=== PATIENT | female | born 1970 | race Caucasian/White ===

== ENCOUNTER 2017-01-11 02:51 | Emergency (ER) ==
[2017-01-11 03:00] VITALS: BP 104/73; TEMP 97.4; BMI 37.5
[2017-01-11] MEDS ORDERED: SODIUM CHLORIDE 1,000 ML IV STA (03:36)
[2017-01-11] MEDS ORDERED: ZOFRAN 4 MG/2 ML IVP STA (03:36)
[2017-01-11] MEDS ORDERED: DILAUDID 1 MG/ML SYRINGE IVP STA (03:36)
[2017-01-11] MEDS ORDERED: PROTONIX IV IVP STA (03:36)
[2017-01-11 03:50] LABS: BASOPHILS # (AUTO) 0.1 K/uL (0-0.2); BASOPHILS % (AUTO) 0.5 % (0.0-3.0); EOSINOPHILS # (AUTO) 0.4 K/ul (0.0-0.7); EOSINOPHILS % (AUTO) 4.2 % (0.0-7.0); HEMATOCRIT 44.3 % (37.0-47.0); HEMOGLOBIN 15.3 g/dl (12.0-16.0); IMMATURE GRANULOCYTE % (AUTO) 0.3 % (0.0-5.0); LYMPHOCYTES # (AUTO) 2.7 K/uL (0.60-3.4); LYMPHOCYTES % (AUTO) 28.7 (10.0-50.0); MEAN CORPUSCULAR HEMOGLOBIN 32.3 pg (27.0-31.0); MEAN CORPUSCULAR HGB CONC 34.5 (31.8-35.4); MEAN CORPUSCULAR VOLUME 93.7 fl (81.0-99.0); MONOCYTES # (AUTO) 0.5 K/uL (0.4-2.0); MONOCYTES % (AUTO) 5.5 (0-10); NEUTROPHILS # (AUTO) 5.7 K/ul (2.0-6.9); NEUTROPHILS % (AUTO) 60.8; PLATELET COUNT 254 10^3/uL (140-440); RED BLOOD COUNT 4.73 10^6/ul (4.20-5.40); WHITE BLOOD COUNT 9.38 K/ul (4.6-10.2)
[2017-01-11 04:04] LABS: FLU INTERNAL QC INTERNAL QC VALID; RAPID FLU A NEGATIVE (NEGATIVE); RAPID FLU B NEGATIVE (NEGATIVE)
[2017-01-11 04:24] LABS: BILIRUBIN,URINE Negative (NEGATIVE); KETONES,URINE Negative (NEGATIVE); LEUKOCYTE ESTERASE ,URINE Negative (NEGATIVE); NITRITE,URINE Negative (NEGATIVE); PROTEIN,URINE Negative (NEGATIVE); URINE, BLOOD Negative (NEGATIVE)
--- NOTE | 2017-01-11 04:24 | CT ---
EXAM: CT abdomen pelvis without intravenous contrast 01/11/2017. Sagittal and coronal reformatted im ages obtained HISTORY: Abdominal pain COMPARISON: None. FINDINGS: Bibasilar atelectasis. The liver and gallbladder show no acute abnormality. The adrenal glands and kidneys show no acute process. No hydronephrosis.. Inferior vena cava filter is in place. The spleen and pancreas show no acute abnormality. There is no evidence of bowel obstruction. Unremarkable urinary bladder. No free air or free fluid. The appendix is not identified. There are no specific secondary signs of appendicitis. No acute osseous abnormality. IMPRESSION: No acute inflammatory process identified within the abdomen or pelvis within the limitat ion of a noncontrast enhanced examination.
[2017-01-11 04:25] LABS: ADD URINE MICROSCOPIC NO
[2017-01-11 04:26] LABS: ALANINE AMINOTRANSFERASE < 6 U/L (12-78); ALBUMIN 3.8 g/dL (3.4-5.0); ALKALINE PHOSPHATASE 71 U/L (42-98); AMYLASE 82 U/L (25-115); ANION GAP 14.5; ASPARTATE AMINO TRANSFERASE 13 U/L (15-37); BILIRUBIN,TOTAL 0.32 mg/dL (0.00-1.20); BLOOD UREA NITROGEN 10 mg/dL (7-18); CALCIUM 9.5 mg/dL (8.2-10.2); CARBON DIOXIDE 20 mmol/L (21-32); CHLORIDE 104 mmol/L (98-107); CREATINE KINASE 173 U/L; CREATININE 0.84 mg/dL (0.60-1.30); GLUCOSE 78 mg/dL (70-110); LIPASE 27 U/L (8-78); POTASSIUM 3.5 mmol/L (3.5-5.10); SODIUM 135 mmol/L (136-145); TOTAL PROTEIN 7.6 g/dL (6.4-8.2)
[2017-01-11] MEDS ORDERED: PHENERGAN 25 MG/ML VIAL 25 MG in SODIUM CHLORIDE 50 ML IV STA (05:12)
[2017-01-11] MEDS ORDERED: SODIUM CHLORIDE 500 ML IV STA (05:13)
[2017-01-11] MEDS ORDERED: PHENERGAN 25 MG/ML VIAL ONE (05:15)
--- NOTE | 2017-01-11 06:22 | ED.PDOC ---
General ED Provider: Dr. AARON VALLES-ER Chief Complaint: Nausea/Vomiting Stated Complaint: i cant swallow--it hurts too bad-- Time Seen by Physician: 06:21 Mode of Arrival: Walk-In Information Source: Patient Exam Limitations: No limitations Primary Care Provider: CHRISTOPHER BONILLA Nursing and Triage Documentation Reviewed and Agree: Yes GI Complaint Exam - Vomiting/Diarrhea Complaint/Exam Onset/Duration: 24hrs Symptoms Are: Still present Initial Severity: Mild Current Severity: Mild Character of Vomiting: Reports: Non-bilious Aggravating: Reports: Food Associated Signs and Symptoms: Denies: Dizziness, Light-headedness, Melena, Hematemesis, Fever, Abdominal pain Use of Oral Contraceptives: No Use of Depoprovera: No Compliant With Contraceptive Use: No Non-GI Risk Factors: Reports: None Surgical Obstruction Risk Factors: Reports: None Abdominal Findings: Present: None Kussmaul Respirations Present: No Differential Diagnoses: Cholecystitis Review of Systems - Review Of Systems Constitutional: Reports: No symptoms Eyes: Reports: No symptoms Ears, Nose, Mouth, Throat: Reports: No symptoms Respiratory: Reports: No symptoms Cardiac: Reports: No symptoms GI: Reports: Abdominal pain, Vomiting : Reports: No symptoms Musculoskeletal: Reports: No symptoms Skin: Reports: No symptoms Neurological: Reports: No symptoms Endocrine: Reports: No symptoms Hematologic/Lymphatic: Reports: No symptoms All Other Systems: Reviewed and Negative Past Medical History - Past Medical History Previously Healthy: No Endocrine: Reports: Unknown Cardiovascular: Reports: Unknown Respiratory: Reports: Unknown Hematological: Reports: Unknown Gastrointestinal: Reports: Unknown Genitourinary: Reports: Unknown Neuro/Psych: Reports: Unknown Musculoskeletal: Reports: Unknown Cancer: Reports: Unknown Last Menstrual Period: PT HAS HAD A PARTIAL HYSTERECTOMY, STILL HAS OVARIES - Surgical History General Surgical History: Reports: Unknown - Family History Family History: Reports: Unknown - Social History Smoking Status: Current every day smoker, Light tobacco smoker Hx Substance Use: No Alcohol Screening: None Lives: With family - Immunizations Tetanus Shot up to Date: Yes Physical Exam - Physical Exam Appearance: Well-appearing, No pain distress, Well-nourished Pain Distress: Mild Eyes: GEORGE, EOMI, Conjunctiva clear ENT: Ears normal, Nose normal, Oropharynx normal Neck: Supple Respiratory: Airway patent Cardiovascular: RRR, Pulses normal, No rub, No murmur GI/: Soft, Nontender, No masses, Bowel sounds normal Musculoskeletal: Normal strength, ROM intact, No edema, No calf tenderness Skin: Warm, Dry, Normal color Neurological: Sensation intact Psychiatric: Affect appropriate, Mood appropriate Interpretation - Radiology Interpretation Radiology Interpretation By: Radiologist Radiology Results: Negative Exam Interpreted: CT Scan Re-Evaluation - Re-Evaluation Time of Re-Evaluation: 06:22 Status: Unchanged (tried to swallow ice chips"they got stuck" and she vomited) Vital Signs Stable: Yes Pain Level: 0 Appearance: NAD Lungs: Clear Skin: Warm and Dry Neuro: Alert and Oriented X3 CV: RRR Critical Care Note - Critical Care Note Total Time (mins): 0 Course - Course Hematology/Chemistry: 01/11/17 03:45 01/11/17 03:45 Orders, Labs, Meds: Lab Review 01/11/17 01/11/17 01/11/17 03:25 03:45 03:45 WBC 9.38 RBC 4.73 Hgb 15.3 Hct 44.3 MCV 93.7 MCH 32.3 H MCHC 34.5 RDW Coeff of Santiago 13.2 Plt Count 254 Immature Gran % (Auto) 0.3 Neut % (Auto) 60.8 Lymph % (Auto) 28.7 Haines % (Auto) 5.5 Eos % (Auto) 4.2 Baso % (Auto) 0.5 Immature Gran # (Auto) 0.0 Neut # 5.7 Lymph # 2.7 Haines # 0.5 Eos # 0.4 Baso # 0.1 Sodium 135 L Potassium 3.5 Chloride 104 Carbon Dioxide 20 L Anion Gap 14.5 BUN 10 Creatinine 0.84 Estimated GFR (MDRD) 73.00 BUN/Creatinine Ratio 11.90 Glucose 78 Calcium 9.5 Total Bilirubin 0.32 AST 13 L ALT < 6 L Alkaline Phosphatase 71 Total Creatine Kinase 173 CK-MB (CK-2) 2.0 CK-MB (CK-2) % 1.92014 Troponin I < 0.0100 Total Protein 7.6 Albumin 3.8 Globulin 3.8 Albumin/Globulin Ratio 1.00 Amylase 82 Lipase 27 Urine Color Urine Clarity Urine pH Ur Specific Richey Urine Protein Urine Glucose (UA) Urine Ketones Urine Blood Urine Nitrite Urine Bilirubin Urine Urobilinogen Ur Leukocyte Esterase Influenza A (Rapid) Negative Influenza B (Rapid) Negative 01/11/17 04:18 WBC RBC Hgb Hct MCV MCH MCHC RDW Coeff of [place] Plt Count Immature Gran % (Auto) Neut % (Auto) Lymph % (Auto) Haines % (Auto) Eos % (Auto) Baso % (Auto) Immature Gran # (Auto) Neut # Lymph # Haines # Eos # Baso # Sodium Potassium Chloride Carbon Dioxide Anion Gap BUN Creatinine Estimated GFR (MDRD) BUN/Creatinine Ratio Glucose Calcium Total Bilirubin AST ALT Alkaline Phosphatase Total Creatine Kinase CK-MB (CK-2) CK-MB (CK-2) % Troponin I Total Protein Albumin Globulin Albumin/Globulin Ratio Amylase Lipase Urine Color Yellow Urine Clarity Clear Urine pH 6.0 Ur Specific Richey <=1.005 Urine Protein Negative Urine Glucose (UA) Negative Urine Ketones Negative Urine Blood Negative Urine Nitrite Negative Urine Bilirubin Negative Urine Urobilinogen 0.2 Ur Leukocyte Esterase Negative Influenza A (Rapid) Influenza B (Rapid) Orders Category Date Time Status EKG-(ED ONLY) Stat CARDIO 01/11/17 03:35 Completed IV [ED IV/MEDIPORT/POWERPORT] .ONCE EMERGENCY 01/11/17 03:36 Active AMYLASE Stat LAB 01/11/17 03:45 Completed CBC W/ AUTO DIFF Stat LAB 01/11/17 03:45 Completed COMPREHENSIVE METABOLIC PANEL Stat LAB 01/11/17 03:45 Completed CREATINE KINASE Stat LAB 01/11/17 03:45 Completed LIPASE Stat LAB 01/11/17 03:45 Completed MOLECULAR GROUP A STREP Stat LAB 01/11/17 03:25 Results RAPID FLU A/B Stat LAB 01/11/17 03:25 Completed STREP SCREEN Stat LAB 01/11/17 03:25 Results TROPONIN I Stat LAB 01/11/17 03:45 Completed URINALYSIS C & S IF INDICATED Stat LAB 01/11/17 04:18 Completed 0.9 % Sodium Chloride [Saline Flush] MEDS 01/11/17 03:36 Ordered 1 syr IVF PRN PRN Hydromorphone HCl [Dilaudid 1 mg/ml Syringe] MEDS 01/11/17 03:36 Discontinued 1 mg IVP ONCE STA Ondansetron HCl/Pf [Zofran 4 mg/2 ml] MEDS 01/11/17 03:36 Discontinued 4 mg IVP ONCE STA Pantoprazole Sodium [Protonix IV] MEDS 01/11/17 03:36 Discontinued 40 mg IVP ONCE STA Promethazine HCl [Phenergan 25 mg/ml Vial] MEDS 01/11/17 05:15 Discontinued 25 mg .ROUTE .STK-MED ONE Promethazine HCl [Phenergan 25 mg/ml Vial] 25 mg MEDS 01/11/17 05:12 Discontinued 0.9 % Sodium Chloride [Sodium Chloride] 50 ml IV ONCE Sodium Chloride 0.9% [Sodium Chloride] 1,000 ml MEDS 01/11/17 03:36 Discontinued IV BOLUS Sodium Chloride 0.9% [Sodium Chloride] 500 ml MEDS 01/11/17 05:[address] ABDOMEN/PELVIS WO CONTRAST Stat RADS 01/11/17 03:37 Completed Medications Generic Name Dose Route Start Last Admin Trade Name Freq PRN Reason Stop Dose Admin Sodium Chloride 1 syr 01/11/17 03:36 01/11/17 04:09 Saline Flush IVF 1 syr PRN PRN Administration To flush IV Discontinued Medications Generic Name Dose Route Start Last Admin Trade Name Freq PRN Reason Stop Dose Admin Hydromorphone HCl 1 mg 01/11/17 03:36 01/11/17 04:02 Dilaudid 1 Mg/Ml Syringe IVP 01/11/17 03:37 1 mg ONCE STA Administration Sodium Chloride 1,000 mls @ 1,000 mls/hr 01/11/17 03:36 01/11/17 04:00 Sodium Chloride IV 01/11/17 04:35 1,000 mls/hr BOLUS STA Administration Promethazine HCl 25 mg/ Sodium 51 mls @ 75 mls/hr 01/11/17 05:12 01/11/17 05: 23 Chloride IV 01/11/17 05:52 75 mls/hr ONCE STA Administration Sodium Chloride 500 mls @ 500 mls/hr 01/11/17 05:13 01/11/17 05:19 Sodium Chloride IV 01/11/17 06:12 500 mls/hr BOLUS STA Administration Ondansetron HCl 4 mg 01/11/17 03:36 01/11/17 04:00 Zofran 4 Mg/2 Ml IVP 01/11/17 03:37 4 mg ONCE STA Administration Pantoprazole Sodium 40 mg 01/11/17 03:36 01/11/17 04:06 Protonix Iv IVP 01/11/17 03:37 40 mg ONCE STA Administration Vital Signs: Temp Pulse Resp BP Pulse Ox 01/11/17 02:52 97.4 F L 81 20 104/73 98 Departure - Departure Time of Disposition: 06:23 Disposition: TSF SHORT-TRM HOSP Discharge Problem: Esophagitis, Vomiting Instructions: Esophagitis (ED) Condition: Good Pt referred to PMD for follow-up: Yes Allergies/Adverse Reactions: Allergies clindamycin Adverse Reaction (Verified 01/11/17 03:00) doxycycline Adverse Reaction (Verified 01/11/17 03:00) ketorolac tromethamine [From Toradol] Adverse Reaction (Verified 01/11/17 03:00) tramadol HCl [From Ultram] Adverse Reaction (Verified 01/11/17 03:00) Home Medications: Ambulatory Orders Alprazolam 0.5 mg PO BID 10/09/12 Citalopram Hydrobromide [Celexa] 40 mg PO DAILY 10/09/12 Hydrocodone/Acetaminophen [[place] 7.5-325 Tablet] 1 tab PO QID 10/09/12 Levothyroxine Sodium [Synthroid] 200 mcg PO DAILY 10/09/12 Montelukast Sodium [Singulair] 10 mg PO DAILY 10/09/12 Ranitidine HCl [Zantac] 300 mg PO BID 10/09/12 Multivit/Folic Acid/Herbal 223 [[place]ro[place] Mood & Memory Caplet] 400 mg PO DAILY 02/25/16 Tizanidine HCl [Zanaflex] 4 mg PO BID 02/25/16 Albuterol Sulfate [Proair Hfa] 2 puff IH Q4H PRN 01/11/17 Fluticasone/Salmeterol 250/50 [Advair 250-50 Diskus] 1 puff IH BID 01/11/17 Transfer Form Completed: Yes Disposition Discussed With: Patient, Family
== END 2017-01-11 07:30 | disposition short-term general hospital (02) ==
LOC: ED 02:51
DX: K20.9 Esophagitis, unspecified (principal); R11.10 Vomiting, unspecified; R10.9 Unspecified abdominal pain; F17.210 Nicotine dependence, cigarettes, uncomplicated; Z79.899 Other long term (current) drug therapy
CPT/HCPCS: 36415; 80053; 81001; 82150; 82550; 82553; 83690; 84484; 85025; 87651; 87804; 87880; 93005; 93010; 96361; 96365; 96375; 99285

== ENCOUNTER 2017-07-01 15:19 | Emergency (ER) ==
[2017-07-01 15:25] VITALS: BP 124/87; TEMP 98.1; BMI 39.3
--- NOTE | 2017-07-01 16:25 | DI ---
EXAM: Four views of the right ankle. History: Right ankle pain. Comparison: Right ankle radiograph 05/11/2016 Findings: No acute fracture or dislocation. Hypertrophic osseous changes of the medial and lateral malleolus compatible with old trauma. Mild to moderate degenerative changes of the talonavicular marcia nt with dorsal osteophytes. Impression: No acute osseous abnormality.
--- NOTE | 2017-07-01 16:26 | DI ---
EXAM: Radiographs, right foot HISTORY: Lateral right foot pain. COMPARISON: Right ankle radiograph 05/11/2016. TECHNIQUE: Three views. FINDINGS: The bones are demineralized. No acute fracture or dislocation detected. Mild degenerativ e changes seen in the right foot and at the tibiotalar joint. Well corticated ossific fragment adjac ent to the medial malleolus may relate to remote trauma. Suspect old fracture deformity of the dista l fibula. No localized soft tissue abnormality is seen. IMPRESSION: No acute fracture.
--- NOTE | 2017-07-01 17:06 | ED.PDOC ---
General ED Provider: Dr. SAL CHAVARRIA Chief Complaint: Ankle Pain/Injury Stated Complaint: ankle and foot pain right side Time Seen by Physician: 15:30 Mode of Arrival: Walk-In Information Source: Patient Exam Limitations: No limitations Primary Care Provider: CHRISTOPHER BONILLA Nursing and Triage Documentation Reviewed and Agree: Yes Reviewed sepsis parameters & appropriate labs ordered?: Yes System Inflammatory Response Syndrome: Not Applicable Sepsis Protocol: For patient's 13 years and over: Temp is 96.8 and below OR 101 and greater Pulse >90 BPM Resp >20/minute Acutely Altered Mental Status Are patient's symptoms suggestive of a new infection, such as: -Pneumonia -Skin, Soft Tissue -Endocarditis -UTI -Bone, Joint Infection -Implantable Device -Acute Abdominal Infection -Wound Infection -Meningitis -Blood Stream Catheter Infection -Unknown System Inflammatory Response Syndrome: Not Applicable Review of Systems - Review Of Systems Constitutional: Reports: No symptoms Eyes: Reports: No symptoms Ears, Nose, Mouth, Throat: Reports: No symptoms Respiratory: Reports: No symptoms Cardiac: Reports: No symptoms GI: Reports: No symptoms : Reports: No symptoms Musculoskeletal: Reports: Joint pain (ankle pain) Skin: Reports: No symptoms Neurological: Reports: No symptoms Endocrine: Reports: No symptoms Hematologic/Lymphatic: Reports: No symptoms All Other Systems: Reviewed and Negative Past Medical History - Past Medical History Previously Healthy: No Endocrine: Reports: Unknown Cardiovascular: Reports: Unknown Respiratory: Reports: Unknown Hematological: Reports: Unknown Gastrointestinal: Reports: Unknown Genitourinary: Reports: Unknown Neuro/Psych: Reports: Unknown Musculoskeletal: Reports: Unknown Cancer: Reports: Unknown Last Menstrual Period: n/a - Surgical History General Surgical History: Reports: Unknown - Family History Family History: Reports: Unknown - Social History Smoking Status: Current every day smoker, Light tobacco smoker Hx Substance Use: No Alcohol Screening: None Physical Exam - Physical Exam Appearance: Well-appearing, No pain distress, Well-nourished Eyes: GEORGE, EOMI, Conjunctiva clear ENT: Ears normal, Nose normal, Oropharynx normal Respiratory: Airway patent, Breath sounds clear, Breath sounds equal, Respirations nonlabored Cardiovascular: RRR, Pulses normal, No rub, No murmur GI/: Soft, Nontender, No masses, Bowel sounds normal, No Organomegaly Musculoskeletal: Normal strength, ROM intact, No edema, No calf tenderness Skin: Warm, Dry, Normal color Neurological: Sensation intact, Motor intact, Reflexes intact, Cranial nerves intact, Alert, Oriented Psychiatric: Affect appropriate, Mood appropriate Interpretation - Radiology Interpretation Radiology Interpretation By: Radiologist Radiology Results: No acute changes Critical Care Note - Critical Care Note Total Time (mins): 0 Course - Course Orders, Labs, Meds: Orders Category Date Time Status ANKLE, RIGHT MIN 3 VIEWS Stat RADS 07/01/17 16:01 Ordered FOOT, RIGHT 3 VIEWS Stat RADS 07/01/17 16:01 Ordered Vital Signs: Temp Pulse Resp BP Pulse Ox 07/01/17 15:20 98.1 F 84 20 124/87 95 Departure - Departure Time of Disposition: 17:05 Disposition: HOME SELF-CARE Discharge Problem: Ankle pain Instructions: Ankle Sprain (ED) Condition: Good Pt referred to PMD for follow-up: Yes IPMP verified?: No Additional Instructions: Please call your Family Physician as soon as possible to schedule a follow-up appointment. Prescriptions: Hydrocodone/Acetaminophen [[place] 5-325 Tablet] 1 each PO Q6HR PRN #12 tablet PRN Reason: PAIN Allergies/Adverse Reactions: Allergies clindamycin Adverse Reaction (Verified 07/01/17 15:25) doxycycline Adverse Reaction (Verified 07/01/17 15:25) ketorolac tromethamine [From Toradol] Adverse Reaction (Verified 07/01/17 15:25) tramadol HCl [From Ultram] Adverse Reaction (Verified 07/01/17 15:25) Home Medications: Ambulatory Orders Alprazolam 0.5 mg PO BID 10/09/12 Citalopram Hydrobromide [Celexa] 40 mg PO DAILY 10/09/12 Hydrocodone/Acetaminophen [[place] 7.5-325 Tablet] 1 tab PO QID 10/09/12 Levothyroxine Sodium [Synthroid] 200 mcg PO DAILY 10/09/12 Montelukast Sodium [Singulair] 10 mg PO DAILY 10/09/12 Ranitidine HCl [Zantac] 300 mg PO BID 10/09/12 Tizanidine HCl [Zanaflex] 4 mg PO BID 02/25/16 Albuterol Sulfate [Proair Hfa] 2 puff IH Q4H PRN 01/11/17 Fluticasone/Salmeterol 250/50 [Advair 250-50 Diskus] 1 puff IH BID 01/11/17 Hydrocodone/Acetaminophen [[place] 5-325 Tablet] 1 each PO Q6HR PRN #12 tablet 06/15 Tiotropium Zoe [Spiriva Respimat] 4 gm IH BID 07/01/17
== END 2017-07-01 17:17 | disposition home or self-care (01) ==
LOC: ED 15:19
DX: M25.571 Pain in right ankle and joints of right foot (principal); F17.210 Nicotine dependence, cigarettes, uncomplicated
CPT/HCPCS: 99283